=== PATIENT | male | born 1955 | race Caucasian/White ===

== ENCOUNTER 2019-04-09 14:50 | Inpatient (IN) | payer MEDICARE, OTHER ==
[~2019-04-09] VITALS: Ht 182.9 cm; Wt 117.5 kg
--- NOTE | 2019-04-09 15:00 | NUR ---
BIB [facility],TRIP/FALL AT A PARKING LOT, (+) EXTERNAL ROTATION/SHORTENING, TO ER BED 9, HOOKED TO MONITOR, CHANGED TO HOSPITAL GOWN, PROVIDED W WARM BLANKET, AWAITING MD ONTIVEROS
--- NOTE | 2019-04-09 15:25 | NUR ---
DR LOPEZ AT BEDSIDE
[2019-04-09] MEDS ORDERED: MORPHINE SULFATE INJ 2 MG/ML DISP.SYRIN IV ONE (15:30)
[2019-04-09] MEDS ORDERED: MORPHINE SULFATE INJ 4 MG/ML DISP.SYRIN ONE ×2 (16:08→20:33)
--- NOTE | 2019-04-09 16:47 | NUR ---
CALLED [facility] [phone] [facility] TO BE PAGED
--- NOTE | 2019-04-09 17:56 | NUR ---
CALLED [facility] LEFT MSG
--- NOTE | 2019-04-09 18:35 | NUR ---
ALEKSANDAR CALLED DR. BONNIE SWIFT
--- NOTE | 2019-04-09 19:22 | NUR ---
AWAITING MD TO MD CALL
--- NOTE | 2019-04-09 19:25 | NUR ---
REPORT GIVEN TO JUDITH BAIRES FOR TEN
--- NOTE | 2019-04-09 19:47 | NUR ---
ON PHONE WITH [facility]
[2019-04-09 20:00] VITALS: BP 108/65
--- NOTE | 2019-04-09 20:06 | NUR ---
EPIC BELT KNIFE FEEDER APFAITH
--- NOTE | 2019-04-09 20:07 | NUR ---
RECIEVED BED 120-1
--- NOTE | 2019-04-09 20:29 | NUR ---
REPORT GIVEN TO VIRY VILLARREAL FOR TEN
[2019-04-09] MEDS ORDERED: MAGNESIUM HYDROXIDE 30 ML UDC PO PRN (20:30)
[2019-04-09] MEDS ORDERED: ACETAMINOPHEN 325 MG TABLET PO PRN (20:30)
[2019-04-09] MEDS ORDERED: ONDANSETRON HCL/PF 4 MG/2 ML VIAL IVP PRN (20:30)
[2019-04-09] MEDS ORDERED: MAG HYDROX/AL HYDROX/SIMETH 30 ML UDC PO PRN (20:30)
[2019-04-09] MEDS ORDERED: Z GUARD REMEDY 2 OZ OINT TP PRN (20:30)
--- NOTE | 2019-04-09 20:30 | NUR ---
PT C/O PAIN ON R KNEE COMING BACK. MD MADE AWARE. RECEIVED VERBAL ORDER TO GIVE MORPHINE 4MG IV X 1. NOTED AND CARRIED OUT
--- NOTE | 2019-04-09 20:43 | NUR ---
PT TRANSPORTED TO UNIT ON GURNEY WITH EMT AND RN AT BEDSIDE. NAD NOTED DURING TRANSPORT
[2019-04-09 20:52] LABS: BASOPHILS # (AUTO) 0.1 /CMM (0.0-0.2); BASOPHILS % (AUTO) 2.3 % (0.0-2.0); HEMATOCRIT 34 % (39-51); LYMPHOCYTES # (AUTO) 1.4 /CMM (0.8-4.8); LYMPHOCYTES % (AUTO) 25.7 % (20.0-44.0); MEAN CORPUSCULAR HGB CONC 33 g/dl (31.0-36.0); MEAN CORPUSCULAR VOLUME 97 fL (80-96); MONOCYTES # (AUTO) 0.8 /CMM (0.1-1.30); MONOCYTES % (AUTO) 14.4 % (2.0-12.0); NEUTROPHILS % (AUTO) 54.6 % (43.0-81.0); PLATELET COUNT (AUTO) 106 /CMM (150-450); RED BLOOD CELL COUNT(AUTO) 3.48 MIL/uL (4.5-6.0); WHITE BLOOD COUNT (AUTO) 5.4 K/uL (4.3-11.0)
[2019-04-09] MEDS ORDERED: MORPHINE SULFATE INJ 4 MG/ML DISP.SYRIN IV PRN (21:00)
[2019-04-09 21:01] LABS: CALCIUM, SERUM 8.6 mg/dL (8.5-10.1); POTASSIUM 3.5 mmol/L (3.5-5.1)
[2019-04-09 21:06] LABS: ALBUMIN 3.2 g/dL (3.4-5.0); BILIRUBIN,TOTAL 1.2 mg/dL (0.2-1.0); MAGNESIUM 1.6 mg/dL (1.8-2.4); TOTAL PROTEIN, SERUM 7.4 g/dL (6.4-8.2)
[2019-04-09] MEDS: IV NS 0.9% 1,000 ML IV PRN (22:14)
[2019-04-09 23:26] LABS: APPEARANCE,URINE SL CLOUDY (CLEAR); BILIRUBIN,URINE NEGATIVE (NEGATIVE); BLOOD, URINE NEGATIVE Ery/uL (NEGATIVE); COLOR,URINE YELLOW (YELLOW); KETONES,URINE TRACE (NEGATIVE); LEUKOCYTE ESTERASE ,URINE NEGATIVE (NEGATIVE); NITRITE, URINE NEGATIVE (NEGATIVE); PROTEIN,URINE NEGATIVE (NEGATIVE); UGLUCOSE NEGATIVE (NEGATIVE)
[2019-04-09 23:32] LABS: RBC,URINE 0-2 /HPF (0-2); WBC,URINE 0-2 /HPF (0-3)
[2019-04-09 23:33] LABS: BACTERIA,URINE None seen /HPF (None Seen); SQUAMOUS EPITHELIAL CELL,UR Rare /HPF (None Seen)
[2019-04-10] VITALS: BP 108/65
[2019-04-10] MEDS: MORPHINE SULFATE INJ 2 MG/ML DISP.SYRIN IV PRN ×4 (00:36→22:52)
--- NOTE | 2019-04-10 03:19 | NUR ---
TELE NOTE ILANA KANG NP ABOUT PATIENTS PAIN. ORDERED OK TO GIVE MORPHINE EARLIER THAN SCHEDULED (ONE HOUR BEFORE) AND KEEP IF AT 1MG.
[2019-04-10] MEDS ORDERED: MORPHINE SULFATE INJ 2 MG/ML DISP.SYRIN IV ONE (03:30)
[2019-04-10 04:00] VITALS: BP 128/70
--- NOTE | 2019-04-10 07:00 | NUR ---
MS RN NOTES PATIENT RECEIVED FROM PM SHIFT. PATIENT IS AWAKE RESTING COMFORTABLY , PATIENT IS A/O X4 , PATIENT IS ON ROOM AIR. PATIENT IS SATURATING WEL, NO SIGNS OF ACUTE RESPIRATORY DISTRESS, NO SOB, NO S/S OF PE . PATIENT SKIN IS INTACT. PATIENT HAS CLOSED FEMUR FRACTURE. REDNESS AND SWELLING NOTED AROUND THE AREA. PATIENT HAS RAC #18 WITH NS 75 ML/HR. PATIENT STATES 2/10 ON NUMBER SCALE. ALL SAFETY PROTOCOL IMPLEMENTED PER HOSPITAL PROTOCAL. BED LOCKED AND LOWEST POSITION CALL LIGHT WITH IN REACH. 2X SAFETY RAILS UP. TALKED TO PATIENT ABOUT PLAN OF CARE AND MEDICATION MANAGEMENT.
[2019-04-10 07:11] LABS: CREATININE 0.7 mg/dL (0.6-1.3); MAGNESIUM 1.8 mg/dL (1.8-2.4); PHOSPHORUS 3.4 mg/dL (2.5-4.9); POTASSIUM 3.7 mmol/L (3.5-5.1); THYROID STIMULATING HORMONE 3.022 uIU/mL (0.358-3.74)
[2019-04-10 07:13] LABS: BASOPHILS % (AUTO) 0.8 % (0.0-2.0); EOSINOPHILS % (AUTO) 1.3 % (0.0-6.0); HEMATOCRIT 28 % (39-51); HEMOGLOBIN 9.3 g/dL (13.5-17.5); LYMPHOCYTES # (AUTO) 1.2 /CMM (0.8-4.8); LYMPHOCYTES % (AUTO) 20.5 % (20.0-44.0); MEAN CORPUSCULAR HGB CONC 34 g/dl (31.0-36.0); MEAN CORPUSCULAR VOLUME 94 fL (80-96); NEUTROPHILS # (AUTO) 3.5 /CMM (1.8-8.9); NEUTROPHILS % (AUTO) 60.4 % (43.0-81.0); PLATELET COUNT (AUTO) 86 /CMM (150-450); RED BLOOD CELL COUNT(AUTO) 2.92 MIL/uL (4.5-6.0); WHITE BLOOD COUNT (AUTO) 5.8 K/uL (4.3-11.0)
--- NOTE | 2019-04-10 07:40 | NUR ---
TELE CLOSING PATIENT IN BED ON ROOM AIR WITH NO SIGN OF SOB. PATIENT CONTINUES TO HAVE PAIN ON THE RT LEG, ENDORSED INFO TO MORNING SHIFT NURSE. IV ACCESS ON THE RAC WITH NS RUNNING AT 75ML/HR. ALL NEEDS MET ALL SAFETY PRECAUTIONS APPLIED. ENDORSED PATIENT TO MORNING SHIFT NURSE FOR TEN.
[2019-04-10 08:00] VITALS: BP 111/67
--- NOTE | 2019-04-10 08:00 | NUR ---
MS RN NOTES TALKED TO PA ABOUT PATIENT CONDITION , PA - WITH PATIENT
[2019-04-10] MEDS: PANTOPRAZOLE 40 MG TABLET.DR PO SCH (08:41)
[2019-04-10] MEDS ORDERED: PANTOPRAZOLE 40 MG VIAL IV SCH (09:00)
[2019-04-10 09:28] LABS: EOSINOPHILS % (MANUAL) 1 % (0-4); LYMPHOCYTES % (MANUAL) 11 % (16-48); MONOCYTES % (MANUAL) 14 % (0-11.0); NEUTROPHILS % (MANUAL) 74 (42-76)
[2019-04-10] MEDS ORDERED: OMEP20CA15 PO (09:29)
[2019-04-10] MEDS ORDERED: IBUP-23 PO (09:29)
[2019-04-10] MEDS ORDERED: LEVO137T24 PO (09:29)
--- NOTE | 2019-04-10 10:00 | NUR ---
MS NOTES PA NOTIFIED NURSE ABOUT POSSIBLE TRANSFER TODAY TO HIGHER LEVEL OF CARE
--- NOTE | 2019-04-10 12:00 | NUR ---
MS RN NOTES HOSPITALIST TALKED TO PATIENT , NOTIFIED TO KEEP NPO FOR POSSIBLE SURGERY TODAY. ORDERED TO CANCEL NPO IF NOT TRANSFERRED BY DINNER .
[2019-04-10] MEDS: IV NS 0.9% 1,000 ML IV PRN (14:18)
[2019-04-10 14:58] LABS: HEMOGLOBIN 9.1 g/dL (13.5-17.5)
--- NOTE | 2019-04-10 17:30 | NUR ---
RN MS NOTES PATIENT TAKEN OFF NPO ORDER FOR NPO AT MIDNIGHT
--- NOTE | 2019-04-10 18:37 | NUR ---
MS RN NOTES PATIENT RESTING IN BED COMFORTABLY PATIENT A/0 X4 PATIENT SKIN INTACT. PATIENT IS RAC INTACT AND PATENT. PATIENT ON ROOM AIR , TOLERATING WELL. PATIENT SHOWS NO SIGNS OF ACUTE RESPIRATORY DISTRESS. NO SOB. EVEN AND UNLABORED BREATHING. BED LOCKED AND LOWEST POSITION, CALL LIGHT WITH IN REACH.
--- NOTE | 2019-04-10 19:10 | NUR ---
MS RN OPENING NOTES RECEIVED PATIENT IN BED, EATING DINNER. ALERT, ORIENTED X 4. BREATHING EVEN AND UNLABORED. NOT IN ANY DISTRESS. PERIPHERAL IV INFUSING AT 75ML/HR. PATIENT C/O R) LEG PAIN, 10/12. NORCO 5/325 PO GIVEN ORDERED. SAFETY MEASURES IN PLACE; CALL LIGHT WITHIN REACH, BED IN LOW, LOKCED POSITION. WILL CONTINUE TO MONITOR ACCORDINGLY
[2019-04-10] MEDS: HYDROCODONE/APAP 5/325MG 1 EACH TABLET PO PRN ×2 (19:14→23:55)
[2019-04-10 20:00] VITALS: BP 123/69
[2019-04-10 22:27] LABS: HEMOGLOBIN 8.5 g/dL (13.5-17.5)
--- NOTE | 2019-04-10 22:52 | NUR ---
RN NOTES PATIENT C/O R) LEG PAIN, 12/12. V/S WNL. MORPHINE 1MG IV GIVEN ORDERED. WILL CONTINUE TO MONITOR
[2019-04-11 04:00] VITALS: BP 122/74
[2019-04-11] MEDS: IV NS 0.9% 1,000 ML IV PRN (04:00)
--- NOTE | 2019-04-11 06:35 | NUR ---
MS RN CLOSING NOTES PATIENT SLEEPING IN BED, EASILY AROUSABLE. BREATHING EVEN AND UNLABORED. NOT IN ANY DISTRESS. PERIPHERAL IV INFUSING AT 75ML/HR. NO COMPLAINTS AT THIS TIME. SAFETY MEASURES IN PLACE; CALL LIGHT WITHIN REACH, BED IN LOW, LOCKED POSITION. WILL CONTINUE TO MONITOR ACCORDINGLY
--- NOTE | 2019-04-11 07:10 | NUR ---
RN NOTES REPORT GIVEN TO VIRY BRUMFIELD
[2019-04-11 07:22] LABS: BASOPHILS # (AUTO) 0.1 /CMM (0.0-0.2); EOSINOPHILS % (AUTO) 2.4 % (0.0-6.0); HEMATOCRIT 26 % (39-51); HEMOGLOBIN 8.6 g/dL (13.5-17.5); LYMPHOCYTES # (AUTO) 0.9 /CMM (0.8-4.8); LYMPHOCYTES % (AUTO) 16.6 % (20.0-44.0); MEAN CORPUSCULAR HGB CONC 34 g/dl (31.0-36.0); MEAN CORPUSCULAR VOLUME 93 fL (80-96); MONOCYTES # (AUTO) 1.1 /CMM (0.1-1.30); MONOCYTES % (AUTO) 18.9 % (2.0-12.0); NEUTROPHILS # (AUTO) 3.5 /CMM (1.8-8.9); NEUTROPHILS % (AUTO) 61.1 % (43.0-81.0); PLATELET COUNT (AUTO) 76 /CMM (150-450); RED BLOOD CELL COUNT(AUTO) 2.75 MIL/uL (4.5-6.0); WHITE BLOOD COUNT (AUTO) 5.7 K/uL (4.3-11.0)
[2019-04-11 07:24] LABS: CREATININE 0.8 mg/dL (0.6-1.3); POTASSIUM 3.5 mmol/L (3.5-5.1)
[2019-04-11 08:00] VITALS: BP 113/71
--- NOTE | 2019-04-11 08:00 | NUR ---
RN OPENING NOTES RECEIVED PATIENT ON BED A/O X4, NOT IN DISTRESS, WITH IV SITE ON RAC 18G ON NS 75ML/HR, INTACT AND PATENT, ON ROOM AIR, NO SOB. KEPT CLEAN AND DRY, PATIENT C/O PAIN ON RIGHT LEG, MORPHINE IV GIVEN , PT TOLERATED WELL.
[2019-04-11] MEDS: PANTOPRAZOLE 40 MG TABLET.DR PO SCH ×3 (08:03→09:00)
[2019-04-11] MEDS: MORPHINE SULFATE INJ 2 MG/ML DISP.SYRIN IV PRN ×2 (08:12→12:51)
--- NOTE | 2019-04-11 08:42 | NUR ---
RN NOTES RECHECK PATIENT'S PAIN, PATIENT STATED THAT THE PAIN IS MUCH BETTER NOW, FROM 8/10 NOW IS 2/10, PT NOT IN DISTRESS, NO SOB. KEPT COMFORTABLE, KEPT CLEAN AND DRY. CALL LIGHT WITHIN REACH
[2019-04-11 08:58] LABS: IRON, SERUM 30 ug/dl (50-175); TOTAL IRON BINDING CAPACITY 321 ug/dl (250-450)
[2019-04-11 09:23] LABS: EOSINOPHILS % (MANUAL) 4 % (0-4); LYMPHOCYTES % (MANUAL) 9 % (16-48); MONOCYTES % (MANUAL) 12 % (0-11.0); NEUTROPHILS % (MANUAL) 75 (42-76)
[2019-04-11 09:36] LABS: FERRITIN 30 ng/mL (8-388)
--- NOTE | 2019-04-11 12:51 | NUR ---
RN NOTES PATIENT REMAIN IN STABLE CONDITION, HE C/O PAIN ON RT LEG 12/12, MORPHINE IV PUSH GIVEN PRN ORDERED, PT TOLERATE WELL, NOT IN DISTRESS. CALL LIGHT WITHIN REACH
--- NOTE | 2019-04-11 13:21 | NUR ---
RN NOTES REASSESS PATIENT PAIN LEVEL, PT STATED COMFORT 2/10 PAIN LEVEL NOW, NOT IN DISTRESS, ABLE TO EAT HIS LUNCH MEAL, NO SOB, KEPT CLEAN AND DRY. CALL LIGHT WITHIN REACH
[2019-04-11 16:00] VITALS: BP 114/69
[2019-04-11] MEDS: HYDROCODONE/APAP 5/325MG 1 EACH TABLET PO PRN (17:08)
--- NOTE | 2019-04-11 18:00 | NUR ---
RN CLOSING NOTES PATIENT ON BED AWAKE , A/O X4, NOT IN DISTRESS, NO SOB, ON ROOM AIR ON 97%, V/S 114/69, TEMP 98.1 , VERBALIZED RELIEF AFTER PAIN MEDICATION NORCO GIVEN 2/10 SCALE. KEPT CLEAN AND DRY, IV SITE INTACT ON LEFT AC G18. MD ORDER FOR DISCHARGE, TRANSPORT AMBULANCE AMS PICKED UP THE PATIENT MOHSEN, SAFETY PRECAUTION OBSERVED. ALL BELONGINGS TAKEN BY THE PATIENT VIA AMBULANCE, DISCHARGED PAPER SIGNED AND GIVEN THE AMBULANCE, KEPT THE IV SITE ON LEFT AC , S/L. PATIENT REFUSED PHOTO FOR THE RIGHT KNEE/LEG AREA, PT REFUSED PNEUMO VACCINE. ALL NEEDS ATTENDED, REPORT GIVEN TO JAMES BAIRES IN [facility] FOR A HIGHER LEVEL OF TREATMENT. PT WILL BE IN [address] [place] [address] ROOM 351.
== END 2019-04-11 19:39 | disposition short-term general hospital (02) | DRG 534 ==
LOC: ER 14:57 → MEDSG1 20:15
PROVIDERS: ADMIT Registered Nurse
DX: S72.411A Displaced unspecified condyle fracture of lower end of right femur, initial encounter for closed fracture (principal); W18.30XA Fall on same level, unspecified, initial encounter; K21.9 Gastro-esophageal reflux disease without esophagitis; E66.01 Morbid (severe) obesity due to excess calories; Z68.35 Body mass index [BMI] 35.0-35.9, adult; M19.90 Unspecified osteoarthritis, unspecified site; E03.9 Hypothyroidism, unspecified; D64.9 Anemia, unspecified; Z96.643 Presence of artificial hip joint, bilateral; S80.11XA Contusion of right lower leg, initial encounter; F17.210 Nicotine dependence, cigarettes, uncomplicated; Y92.481 Parking lot as the place of occurrence of the external cause
CPT/HCPCS: 36415; 71045-TC; 73502; 73552; 73564-TC; 73700-TC; 80048-TC; 80053-TC; 80061-TC; 81000-TC; 82728-TC; 83540-TC; 83735-TC; 84100-TC; 84443-TC; 84484-TC; 85025-TC; 85027-TC; 85610-TC; 85730-TC; 86850-TC; 87081-TC; 93307-TC; 93971-TC; C9113; G0378; J2270; J7030